=== PATIENT | female | born 1995 | race Caucasian/White ===

== ENCOUNTER 2020-02-04 20:14 | Inpatient (IN) | payer BC ==
[~2020-02-04] VITALS: Ht 167.6 cm; Wt 65.8 kg
[2020-02-04] MEDS ORDERED: Acetaminophen 500mg (ES) tab ORAL ONE (20:45)
--- NOTE | 2020-02-04 20:45 | NUR ---
ED Nurse Note: Recieved pt from home, here with c/o dusuria with left flank pain and now fevers x 2-3 days, pt also with recent travel from [place], pt is awake, alert and oriented x 4, ambulatory, pain at 8/10 with mild nausea, no cp, no sob or labored breathing, pt has hx of kidney infectioon and states this feels the same, also states has hx of IV drug use, pt is calm and cooperative, urine sample collected and sent, will resume care as ordered and closely monitor.
--- NOTE | 2020-02-04 20:57 | Emergency Room Report ---
History of Present Illness General Chief Complaint: Pain Source: Patient Present Illness HPI Patient presents with 2 to 3 days of left-sided flank pain fever and chills. She was recently told that she had kidney stones but also told that she passed them. She has been taking antibiotics mainly penicillin. She finished them several days ago. She is also been taking ibuprofen and says it has not helped. The pain is rated 8/10 at this time left flank. Aching and pressure. The patient does not have periods as she is on control. Patient denies any upper respiratory symptoms. No sore throat, chest pain, palpitations, vomiting, diarrhea, shortness of breath, joint pain, rashes, depression, anxiety, visual changes, dizziness, headache. Allergies: Coded Allergies: No Known Allergies (Unverified , 02/04/20) COVID-19 Screening Contact w/high risk pt: No Recent Travel to affected area: No Experienced COVID-19 symptoms?: Yes COVID-19 symptoms experienced: Fever (T>100.4F or >38C) Patient History Social History: Reports: smoking Social History Narrative server security administrator Reviewed Nursing Documentation: PMH: Agreed; PSxH: Agreed Nursing Documentation-PMH Past Medical History: No Stated History Review of Systems All Other Systems: negative except mentioned in HPI Physical Exam Vital Signs Date Time Temp Pulse Resp B/P (MAP) Pulse Ox O2 Delivery O2 Flow Rate FiO2 02/04/20 20:21 101.8 108 19 118/69 (85) Sp02 EP Interpretation: reviewed, normal General Appearance: well appearing, no apparent distress, GCS 15, non-toxic Head: normocephalic Eyes: bilateral eye normal inspection, bilateral eye PERRL, bilateral eye EOMI ENT: moist mucus membranes Neck: supple Respiratory: lungs clear, normal breath sounds Cardiovascular #1: regular rate, rhythm Cardiovascular #2: 2+ radial (R) Gastrointestinal: no rebound, guarding - Slight guarding, tenderness - Left flank anteriorly Genitourinary: CVA tenderness (L) Musculoskeletal: back normal, normal range of motion, gait/station normal Neurologic: alert, oriented x3, grossly normal Psychiatric: mood/affect normal Skin: no rash, warm/dry Medical Decision Making Diagnostic Impression: Primary Impression: Acute pyelonephritis ER Course Patient presents with fever chills and left-sided flank pain with history renal stones in the past and recent treatment with antibiotics. Differential includes pyelonephritis, retained stone left, urinary tract infection, diverticulitis amongst others. Patient evaluated with labs and renal ultrasound. Patient treated with IV hydration, acetaminophen and also Reglan and Benadryl. Concern about her antibiotic use and recurrent symptoms. Based on presumptive diagnosis of pyelonephritis antibiotics ordered. 2114 Labs with leukocytosis. Ultrasound with mild hydronephrosis on the right but normal on the left. No stones. Urinalysis with pyuria. Due to the fact that the patient had previous antibiotics and that she has white count of 20,000 and significant flank pain the patient is admitted for IV antibiotics and IV hydration and pain control. Analgesia repeated. Patient admitted to medical floor Dr. Potts. Laboratory Tests Test 02/04/20 20:55 02/04/20 21:10 White Blood Count 20.4 K/UL (4.8-10.8) H Red Blood Count 3.85 M/UL (4.20-5.40) L Hemoglobin 11.4 G/DL (12.0-16.0) L Hematocrit 34.1 % (37.0-47.0) L Mean Corpuscular Volume 89 FL (80-99) Mean Corpuscular Hemoglobin 29.5 PG (27.0-31.0) Mean Corpuscular Hemoglobin Concent 33.3 G/DL (32.0-36.0) Red Cell Distribution Width 14.0 % (11.6-14.8) Platelet Count 467 K/UL (150-450) H Mean Platelet Volume 6.0 FL (6.5-10.1) L Neutrophils (%) (Auto) % (45.0-75.0) Lymphocytes (%) (Auto) % (20.0-45.0) Monocytes (%) (Auto) % (1.0-10.0) Eosinophils (%) (Auto) % (0.0-3.0) Basophils (%) (Auto) % (0.0-2.0) Differential Total Cells Counted 100 Neutrophils % (Manual) 76 % (45-75) H Lymphocytes % (Manual) 16 % (20-45) L Monocytes % (Manual) 3 % (1-10) Eosinophils % (Manual) 1 % (0-3) Basophils % (Manual) 2 % (0-2) Band Neutrophils 2 % (0-8) Platelet Estimate Adequate Platelet Morphology Normal Red Blood Cell Morphology Normal Urine Color Yellow Urine Appearance Cloudy Urine pH 8 (4.5-8.0) Urine Specific [place] 1.010 (1.005-1.035) Urine Protein 2+ (NEGATIVE) H Urine Glucose (UA) Negative (NEGATIVE) Urine Ketones Negative (NEGATIVE) Urine Blood 5+ (NEGATIVE) H Urine Nitrite Negative (NEGATIVE) Urine Bilirubin Negative (NEGATIVE) Urine Urobilinogen 4 MG/DL (0.0-1.0) H Urine Leukocyte Esterase 2+ (NEGATIVE) H Urine RBC 10-15 /HPF (0 - 2) H Urine WBC 20-30 /HPF (0 - 2) H Urine Squamous Epithelial Cells Moderate /LPF (NONE/OCC) H Urine Bacteria Moderate /HPF (NONE) H Urine HCG, Qualitative Negative (NEGATIVE) Sodium Level 139 MMOL/L (136-145) Potassium Level 3.6 MMOL/L (3.5-5.1) Chloride Level 102 MMOL/L (98-107) Carbon Dioxide Level 26 MMOL/L (21-32) Anion Gap 11 mmol/L (5-15) Blood Urea Nitrogen 8 mg/dL (7-18) Creatinine 0.7 MG/DL (0.55-1.30) Estimated Glomerular Filtration Rate > 60 mL/min (>60) Glucose Level 110 MG/DL (74-106) H Calcium Level 9.1 MG/DL (8.5-10.1) Total Bilirubin 0.2 MG/DL (0.2-1.0) Aspartate Amino Transferase (AST) 10 U/L (15-37) L Alanine Aminotransferase (ALT) 18 U/L (12-78) Alkaline Phosphatase 51 U/L (46-116) Total Protein 7.4 G/DL (6.4-8.2) Albumin 2.7 G/DL (3.4-5.0) L Globulin 4.7 g/dL Albumin/Globulin Ratio 0.6 (1.0-2.7) L Lipase 88 U/L (73-393) Lactic Acid Level 1.70 mmol/L (0.4-2.0) CT/MRI/US Diagnostic Results CT/MRI/US Diagnostic Results : Imaging Test Ordered: renal US Impression slight hydro R, none L Last Vital Signs Date Time Temp Pulse Resp B/P (MAP) Pulse Ox O2 Delivery O2 Flow Rate FiO2 3/25/20 07:00 98.7 75 16 99/64 (76) 98 02/05/20 00:15 Room Air Status: improved Disposition: ADMITTED INPATIENT Condition: Serious Scripts No Active Prescriptions or Reported Meds Christopher Dela Cruz MD Feb 04, 2020 20:57
[2020-02-04] MEDS ORDERED: DiphenhydrAMINE 50mg/ml Inj IVP ONE (21:00)
[2020-02-04] MEDS ORDERED: Metoclopramide 10mg/2ml Inj IVP ONE (21:00)
[2020-02-04] MEDS ORDERED: cefTRIAXone 1 GM in NS 55 ML IVPB ONE (21:15)
[2020-02-04 21:20] LABS: HEMATOCRIT 34.1 % (37.0-47.0); HEMOGLOBIN 11.4 G/DL (12.0-16.0); MEAN CORPUSCULAR VOLUME 89 FL (80-99); PLATELET COUNT 467 K/UL (150-450); RED BLOOD COUNT 3.85 M/UL (4.20-5.40); WHITE BLOOD COUNT 20.4 K/UL (4.8-10.8)
[2020-02-04 21:28] LABS: APPEARANCE,URINE CLOUDY; BILIRUBIN, URINE NEGATIVE (NEGATIVE); GLUCOSE, URINE (UA) NEGATIVE (NEGATIVE); KETONES,URINE NEGATIVE (NEGATIVE); LEUKOCYTE ESTERASE ,URINE 2+ (NEGATIVE); NITRITE,URINE NEGATIVE (NEGATIVE); PH,URINE 8 (4.5-8.0); PROTEIN,URINE 2+ (NEGATIVE); UROBILINOGEN,URINE 4 MG/DL (0.0-1.0)
[2020-02-04 21:30] LABS: COLOR,URINE YELLOW
[2020-02-04] MEDS ORDERED: Morphine Sulfate 4mg/ml Inj (IV USE ONLY) IVP ONE (21:30)
[2020-02-04 21:34] LABS: ANION GAP 11 mmol/L (5-15); BLOOD UREA NITROGEN 8 mg/dL (7-18); CALCIUM 9.1 MG/DL (8.5-10.1); CARBON DIOXIDE 26 MMOL/L (21-32); CHLORIDE 102 MMOL/L (98-107); CREATININE 0.7 MG/DL (0.55-1.30); POTASSIUM 3.6 MMOL/L (3.5-5.1); SODIUM 139 MMOL/L (136-145)
[2020-02-04 21:39] LABS: ALANINE AMINOTRANSFERASE 18 U/L (12-78); ALBUMIN 2.7 G/DL (3.4-5.0); ALBUMIN/GLOBULIN RATIO 0.6 (1.0-2.7); ALKALINE PHOSPHATASE 51 U/L (46-116); ASPARTATE AMINO TRANSFERASE 10 U/L (15-37); BILIRUBIN,TOTAL 0.2 MG/DL (0.2-1.0)
--- NOTE | 2020-02-04 22:38 | Diagnostic Imaging Report ---
Indication:Elevated Bun and Creatinine. Technique: Grayscale and duplex Doppler imaging of the kidneys performed. Comparison: None Findings: The size, contour, and echogenicity of both kidneys are within normal limits. There is mild right hydronephrosis.. The right kidney measures 10.8 cm. in length. The left kidney measures 12.7 cm. in length. Fatty liver incidentally noted with diffuse increased echogenicity of the visualized part of the liver. The IVC is patent. Urinary bladder is unremarkable. IMPRESSION: Mild right hydronephrosis. Consider further evaluation with CT. Fatty liver
[2020-02-04 23:00] VITALS: BP 108/68
[2020-02-04] MEDS ORDERED: Morphine Sulfate 4mg/ml Inj (IV USE ONLY) IVP PRN ×2 (23:15→23:30)
--- NOTE | 2020-02-04 23:30 | NUR ---
ED Nurse Note: Pt being admitted for pyelonephritis, pt is awake and alert, IV site patent, completed IV antibiotics, tolerated well, no s/s of adverse reaction noted, IV site intact and patent, pt medicated again for pain with morphine, pain at 7/10, belongings list completed and med rec, report called and pt is being taken to unit via wheelchair by bernardo Reyes during pt transport to floor bed.
--- NOTE | 2020-02-04 23:50 | NUR ---
NURSE NOTES: PATIENT WAS SAFELY TRANSFERRED TP UNIT VIA WHEELCHAIR. REPORT RECEIVED FROM HARRY GARNER. BELONGING LIST REVIEWED AND SIGNED. PATIENT IS AWAKE, AAOX4, ON ROOM AIR, NO RESPIRATORY DISTRESS NOTED. ORIENTEED PATIENT TO ROOM. PATIENT C.O PAIN IN LOWER LEFT QUAD. PATIENT JUST RECEIVED PRN MORPHINE IN ER. WILL REASSESS. IV IS INTACT AND PATENT. CONTACTED [facility] FOR ADMISSION ORDERS. BED IS LOCKED AND LOW, BED ALARMS ACTIVE, SIDE RAILS UP X2 AND CALL LIGHT IS WITHIN REACH. WILL CONTINUE TO MONITOR.
[2020-02-05] MEDS: NS w/KCl 20mEq 1000ml 1,000 ML IV SCH ×3 (01:11→18:45)
[2020-02-05 04:00] VITALS: BP_SYST 102; BP_SYST 99; BP_DIAS 55; BP_DIAS 64
[2020-02-05 06:31] LABS: HEMATOCRIT 34.1 % (37.0-47.0); HEMOGLOBIN 11.7 G/DL (12.0-16.0); MEAN CORPUSCULAR VOLUME 87 FL (80-99); PLATELET COUNT 443 K/UL (150-450); RED BLOOD COUNT 3.93 M/UL (4.20-5.40); RED CELL DISTRIBUTION WIDTH 12.2 % (11.6-14.8); WHITE BLOOD COUNT 19.2 K/UL (4.8-10.8)
[2020-02-05 07:00] VITALS: BP 99/64
[2020-02-05] MEDS: Piperacillin/Tazobactam 3.375 GM in NS 110 ML IVPB SCH ×3 (07:01→22:10)
--- NOTE | 2020-02-05 07:29 | NUR ---
HAND-OFF: Report given to Wayne Velasquez RN.
--- NOTE | 2020-02-05 07:30 | NUR ---
NURSE NOTES: Patient lying in bed sleeping. No sign and symptoms of pain or discomfort at this time. IV dressing intact and dry. Bed lowest position. Call light within reach. Will continue to monitor.
[2020-02-05 07:37] LABS: ALANINE AMINOTRANSFERASE 17 U/L (12-78); ALBUMIN 2.2 G/DL (3.4-5.0); ALBUMIN/GLOBULIN RATIO 0.5 (1.0-2.7); ALKALINE PHOSPHATASE 47 U/L (46-116); ANION GAP 11 mmol/L (5-15); ASPARTATE AMINO TRANSFERASE 10 U/L (15-37); BILIRUBIN,TOTAL 0.3 MG/DL (0.2-1.0); BLOOD UREA NITROGEN 6 mg/dL (7-18); CALCIUM 8.7 MG/DL (8.5-10.1); CARBON DIOXIDE 24 MMOL/L (21-32); CHLORIDE 107 MMOL/L (98-107); CREATININE 0.7 MG/DL (0.55-1.30); POTASSIUM 4.4 MMOL/L (3.5-5.1); SODIUM 142 MMOL/L (136-145)
--- NOTE | 2020-02-05 08:00 | NUR ---
NURSE NOTES: Patient awake and alert and oriented,IV fluids infusing as ordered.PATIENT Ate breakfast and resting at this time.call light within reach.
--- NOTE | 2020-02-05 08:27 | NUR ---
HAND-OFF: Report given to Kait MCDONALD. Patient in stable condition.
--- NOTE | 2020-02-05 09:01 | NUR ---
*-* INSURANCE *-* ALL AVAILABLE CLINICALS HAVE BEEN FAXED TO: [facility] [facility] F:[phone] Addendum: 02/05/20 at 1106 by SEFERINO CHAUDHARY CM [employer] [facility] REF# [id number] P: [phone] F: [phone]
[2020-02-05] MEDS: Heparin 5000 units/ml inj SUBQ SCH ×2 (09:20→22:08)
[2020-02-05 12:00] VITALS: BP 92/53
--- NOTE | 2020-02-05 13:07 | NUR ---
CASE MANAGEMENT: INITIAL REVIEW 24YR OLD FEMALE FROM HOME CC: DIFFICULTY URINATION; PAIN HX: history renal stones SI:PYELONEPHRITIS 101.8 108 19 118/69 97% ON RA WBC 20.4 H/H 11.4/34.1 PLT 467 IS:IV ROCEPHIN X1 IV LEVAQUIN X1 IVF NS BOLUS X2 IV MORPHINE SULFATE X2 IV REGLAN X1 IV BENADRYL X1 TYLENOL PO X1 US RENAL- Mild right hydronephrosis \: 4E MED SURG UNIT DCP: HOME WHEN STABLE PLAN: CONT IV ABX IV HYDRATION PAIN CONTROL INTERQUAL MET CASE MANAGEMENT:REVIEW 02/05/20 SI:PYELONEPHRITIS 98.7 75 16 99/64 98% ON RA WBC 19.2 H/H 11.7/34.1 URIC ACID 2.2 IS:IV ZOSYN Q8HR IV KCL Q8HR HEPARIN SQ BID \: 4E MED SURG UNIT DCP: HOME WHEN STABLE PLAN: CONT IV ABX IV HYDRATION CONTROL PAIN REG DIET ORDERED
[2020-02-05] MEDS: traMADol 50mg tab ORAL PRN ×2 (15:53→22:10)
[2020-02-05 16:00] VITALS: BP 110/57
--- NOTE | 2020-02-05 16:08 | Diagnostic Imaging Report ---
Indication: Dyspnea Comparison: None A single view chest radiograph was obtained. Findings: Cardiomediastinal appearance is within normal limits for age. The lungs are clear. Pulmonary vascularity is appropriate. The diaphragmatic contour is smooth and costophrenic angles are sharp. No pleural effusions are identified. The bones are unremarkable. Impression: No acute findings
--- NOTE | 2020-02-05 16:59 | Consultation ---
DATE OF CONSULTATION: 02/05/2020 INFECTIOUS DISEASES CONSULTATION CONSULTING PHYSICIAN: Kenny Colindres M.D. PRIMARY ATTENDING PHYSICIAN: Christopher Potts M.D. REASON FOR CONSULTATION: Pyelonephritis. HISTORY OF PRESENT ILLNESS: The patient is a 24-year-old white female admitted last night complaining of left flank pain, fever, had a temperature of 101.8 in the hospital, chills. The patient states that she was diagnosed with nephrolithiasis one week ago when she was in [place] and she passed the stones. The patient finished the course of antibiotic one week ago. PAST MEDICAL HISTORY: Significant for nicotine dependence and amphetamine abuse. ALLERGIES: No known drug allergies. MEDICATIONS: Getting heparin, Zosyn, Tylenol, tramadol. SOCIAL HISTORY: Single, just moved from [place] to [place] to stay in sober house. Has history of methamphetamine abuse, last use was one week ago. Smoker one pack a day. Has a child in a [facility] that her sister has the custody. REVIEW OF SYSTEMS: Fever, chills, dark urine, left flank pain and tenderness, has some dry coughing. PHYSICAL EXAMINATION: VITAL SIGNS: Temperature 98.1, maximum temperature 101.8, pulse 75, blood pressure 99/64. GENERAL APPEARANCE: No acute distress, well developed. HEAD AND NECK: [place] conjunctiva. HEART: Normal rate. LUNGS: Clear. ABDOMEN: Costovertebral tenderness in the left side. EXTREMITIES: No edema. NEUROLOGIC: Awake, alert, oriented x3. LABORATORY AND DIAGNOSTIC DATA: WBC is 19.2, hemoglobin 11.7, hematocrit 34.1, and platelets is 443. Sodium 142, potassium 4.1, chloride 107, bicarb 24, BUN 6, creatinine 0.7. Lactic acid 1.7. Albumin is low at 2.2. UA showed wbc's 20 to 30, rbc's 10 to 15. Renal ultrasound showed mild right hydronephrosis, fatty liver. IMPRESSION: Sepsis with fever and leukocytosis, seems to have pyelonephritis, has mild hydronephrosis, nicotine dependence, methamphetamine abuse, some dry coughing. RECOMMENDATION: Continue Zosyn. We will follow up the cultures. We will start the patient on nicotine patch. We will order HIV test if it is not done before. We will order a chest x-ray. At the end of my exam, I thank Dr. Potts, for involving me in the care of this patient. Kenny Colindres M.D. DR: Sanford JOB#: [id number] CC: KWESI
--- NOTE | 2020-02-05 18:46 | NUR ---
NURSE NOTES: Tylenol 650mg po given for temperature 101.4 will monitor
--- NOTE | 2020-02-05 19:30 | NUR ---
NURSE NOTES: Decrease in temperature now 99.9,patient resting.
--- NOTE | 2020-02-05 19:40 | NUR ---
HAND-OFF: Report given to Ankush MCDONALD.
[2020-02-05 20:00] VITALS: BP 108/62
--- NOTE | 2020-02-05 20:00 | NUR ---
NURSE NOTES: Pt is in bed, awake,alert and verbal. No acute distress noted. Vitals stable. Pain medication will be given as ordered PRN. Bed locked low, side rails up and call light within reach. Pt instructed to call for assistance if needed. Pt will be monitored.
[2020-02-06] VITALS: BP 100/55
[2020-02-06] MEDS: NS w/KCl 20mEq 1000ml 1,000 ML IV SCH ×4 (01:43→23:30)
[2020-02-06] MEDS ORDERED: Omnipaque-300 100ml vial INJ PRN (03:45)
[2020-02-06 04:00] VITALS: BP 105/57
--- NOTE | 2020-02-06 04:26 | NUR ---
NURSE NOTES: Pt is asleep. No acute distress noted. Dr. Potts ordered CT of the abdomen and Pelvis with contrast. Pt will be kept NPO and consent for the contrast will be obtained.
--- NOTE | 2020-02-06 04:30 | History and Physical Report ---
DATE OF ADMISSION: 02/04/2020 REASON FOR ADMISSION: Pyelonephritis. HISTORY OF PRESENT ILLNESS: This is a 24-year-old white female. She presented to the emergency room this evening with left-sided flank pain and fevers to 101.8 with chills. She has a history of kidney stones noted about a week ago when she was out of state in [place] and knows that she passes stones, although cannot be sure that all of them passed. She took a course of antibiotics, which she completed about a week ago. She feels that she did not completely recover, but got much worse over the past two days. The patient does have a history of methamphetamine use and started detox about a week ago. She moved here to stay at a sober house at that time. The patient denies any prior history of kidney infection that she is aware of. PAST MEDICAL HISTORY: Otherwise unremarkable. SOCIAL HISTORY: Notable for amphetamine abuse and nicotine dependence of a pack per day. No alcohol abuse. ALLERGIES: None. MEDICATIONS: Prior to admission, none. REVIEW OF SYSTEMS: Otherwise unremarkable. PHYSICAL EXAMINATION: VITAL SIGNS: Afebrile, temperature earlier 101.8 in the emergency room, blood pressure 99/64, heart rate 75, and respiratory rate 12. HEENT: Conjunctivae are pink. Oropharynx is clear. NECK: Supple. Jugular venous pressure normal. LUNGS: Clear. CARDIAC: Regular. Normal S1 and S2 with no murmur. ABDOMEN: Soft and nontender. There is left-sided CVA tenderness. EXTREMITIES: No edema. NEUROLOGIC: Nonfocal. SKIN: Without rash. LABORATORY AND DIAGNOSTIC DATA: White count 20.4, hemoglobin 11.4, and platelets 467,000. Chemistry panel notable for BUN 8 and creatinine 0.7. Liver function normal. Albumin 2.7. Lactic acid 1.7. Urinalysis 20 to 30 white cells with moderate bacteria. Abdominal ultrasound is notable for right hydronephrosis. IMPRESSION: 1. Pyelonephritis. 2. Hydronephrosis. 3. Moderate protein-calorie malnutrition. 4. Amphetamine abuse. 5. Sepsis. 6. Leukocytosis. PLAN: 1. IV fluid hydration. 2. Empiric antimicrobials. 3. Await culture results. 4. Followup CT imaging of the genitourinary tract to be considered. Christopher Sly Potts DR: NORBERTO JOB#: [id number] CC:
--- NOTE | 2020-02-06 04:45 | Progress Note ---
DATE: 02/05/2020 INTERNAL MEDICINE PROGRESS NOTE SUBJECTIVE: The patient does not feel much better. Still has weakness and left-sided flank pain. No dysuria. No fevers or chills. She was started on IV antimicrobials late last evening. OBJECTIVE: VITAL SIGNS: Blood pressure 110/57, pulse 84, respirations 20, temperature 100.6. LUNGS: Clear. CARDIAC: Regular. ABDOMEN: Soft. Positive left-sided CVA tenderness. EXTREMITIES: No edema. LABORATORY DATA: White count 19 and hemoglobin 11.7. Potassium 4.4, BUN 16, creatinine 0.7, uric acid 2.2, TSH 1.0, and albumin 2.2. IMPRESSION: 1. Pyelonephritis. 2. Leukocytosis. 3. Sepsis. 4. Severe protein-calorie malnutrition. 5. Methamphetamine abuse. 6. Nicotine dependence. 7. History of nephrolithiasis. PLAN: 1. Hydrate with IV fluids. 2. CT scan of the abdomen and pelvis. 3. Continue intravenous antimicrobials. 4. Nicotine patch. 5. Pain control. 6. DVT prophylaxis. 7. Protein supplement. Christopher Potts M.D. DR: NANCY JOB#: [id number] CC:
[2020-02-06] MEDS: Piperacillin/Tazobactam 3.375 GM in NS 110 ML IVPB SCH ×3 (05:17→21:50)
[2020-02-06 06:21] LABS: BASOPHILS % (AUTO) 0.8 % (0.0-2.0); EOSINOPHILS % (AUTO) 1.5 % (0.0-3.0); HEMATOCRIT 32.3 % (37.0-47.0); LYMPHOCYTES % (AUTO) 18.6 % (20.0-45.0); MEAN CORPUSCULAR VOLUME 86 FL (80-99); MONOCYTES % (AUTO) 6.3 % (1.0-10.0); NEUTROPHILS % (AUTO) 72.8 % (45.0-75.0); PLATELET COUNT 421 K/UL (150-450); RED BLOOD COUNT 3.75 M/UL (4.20-5.40); RED CELL DISTRIBUTION WIDTH 12.5 % (11.6-14.8); WHITE BLOOD COUNT 15.5 K/UL (4.8-10.8)
[2020-02-06 06:40] LABS: ALANINE AMINOTRANSFERASE 14 U/L (12-78); ALBUMIN 2.2 G/DL (3.4-5.0); ALBUMIN/GLOBULIN RATIO 0.5 (1.0-2.7); ALKALINE PHOSPHATASE 47 U/L (46-116); ANION GAP 11 mmol/L (5-15); ASPARTATE AMINO TRANSFERASE 10 U/L (15-37); BILIRUBIN,TOTAL 0.3 MG/DL (0.2-1.0); BLOOD UREA NITROGEN 4 mg/dL (7-18); CALCIUM 9.1 MG/DL (8.5-10.1); CARBON DIOXIDE 26 MMOL/L (21-32); CHLORIDE 105 MMOL/L (98-107); CREATININE 0.7 MG/DL (0.55-1.30); POTASSIUM 4.1 MMOL/L (3.5-5.1); SODIUM 142 MMOL/L (136-145)
--- NOTE | 2020-02-06 07:08 | NUR ---
HAND-OFF: Report given to HARRY Carballo.Informed Kait to check with radiology to find out when the CT scan will be done because pt does not want to stay NPO for long.
[2020-02-06 08:00] VITALS: BP_SYST 102; BP_SYST 98; BP_DIAS 57
--- NOTE | 2020-02-06 08:03 | NUR ---
NURSE NOTES: Patient eyes closed, responds when name called. respirations unlabored.IV fluids infusing as ordered.Patient NPO for CT today,will follow up.Call light within reach.
[2020-02-06] MEDS: Heparin 5000 units/ml inj SUBQ SCH ×2 (09:45→21:00)
--- NOTE | 2020-02-06 10:24 | NUR ---
CASE MANAGEMENT:REVIEW 02/06/20 SI:PYELONEPHRITIS 99.3 80 18 98/57 96% ON RA WBC 15.5 H/H 11.0/32.3 URIC ACID 2.2 IS:IV ZOSYN Q8HR IV KCL Q8HR HEPARIN SQ BID ULTRAM Q6HR/PRN \: 4E MED SURG UNIT DCP: HOME WHEN STABLE PLAN: CONT IV ABX IV HYDRATION CONTROL PAIN WBC TRENDING DOWN CONTROL FEVERS: 02/05/20: TEMP: @ 1600-T 100.6-@1853 T 101.4 MONITOR LOW BP RENAL US RECOMMENDING -CT ABD PEL TODAY
[2020-02-06 12:00] VITALS: BP 113/68
--- NOTE | 2020-02-06 12:40 | Infectious Diseases Prog Note ---
Assessment/Plan Assessment/Plan IMPRESSION: Sepsis with fever and leukocytosis, pyelonephritis, mild hydronephrosis in right side, nicotine dependence, methamphetamine abuse, RECOMMENDATION: Continue Zosyn. We will follow up the cultures. Will CT scan of abdomen & pelvis HIV test : negative Subjective ROS Limited/Unobtainable: Yes Constitutional: Reports: fever, other - last night Respiratory: Reports: no symptoms Cardiovascular: Reports: no symptoms Gastrointestinal/Abdominal: Reports: no symptoms Allergies: Coded Allergies: No Known Allergies (Unverified , 02/04/20) Objective Vital Signs Last 24 Hour Vital Signs Date Time Temp Pulse Resp B/P (MAP) Pulse Ox O2 Delivery O2 Flow Rate FiO2 02/06/20 10:03 Room Air 02/06/20 08:00 99.3 80 18 98/57 (71) 96 02/06/20 04:00 98.2 74 16 105/57 (73) 96 02/06/20 00:00 98.2 73 18 100/55 (70) 98 02/05/20 21:00 Room Air 02/05/20 20:00 99.7 101 18 108/62 (77) 98 02/05/20 19:30 99.9 02/05/20 18:53 101.4 02/05/20 16:00 100.6 84 20 110/57 (74) 96 Height (Feet): 5 Height (Inches): 6.00 Weight (Pounds): 145 General Appearance: no acute distress HEENT: mucous membranes moist Respiratory/Chest: lungs clear Cardiovascular: normal rate Abdomen: soft, non tender Extremities: no edema Neurologic/Psychiatric: alert, oriented x 3, responsive Microbiology Date/Time Source Procedure Growth Status 02/04/20 20:55 Urine,Clean Catch Urine Culture - Preliminary NO GROWTH Resulted Laboratory Tests Test 02/06/20 05:45 White Blood Count 15.5 K/UL (4.8-10.8) H Red Blood Count 3.75 M/UL (4.20-5.40) L Hemoglobin 11.0 G/DL (12.0-16.0) L Hematocrit 32.3 % (37.0-47.0) L Mean Corpuscular Volume 86 FL (80-99) Mean Corpuscular Hemoglobin 29.4 PG (27.0-31.0) Mean Corpuscular Hemoglobin Concent 34.1 G/DL (32.0-36.0) Red Cell Distribution Width 12.5 % (11.6-14.8) Platelet Count 421 K/UL (150-450) Mean Platelet Volume 5.3 FL (6.5-10.1) L Neutrophils (%) (Auto) 72.8 % (45.0-75.0) Lymphocytes (%) (Auto) 18.6 % (20.0-45.0) L Monocytes (%) (Auto) 6.3 % (1.0-10.0) Eosinophils (%) (Auto) 1.5 % (0.0-3.0) Basophils (%) (Auto) 0.8 % (0.0-2.0) Sodium Level 142 MMOL/L (136-145) Potassium Level 4.1 MMOL/L (3.5-5.1) Chloride Level 105 MMOL/L (98-107) Carbon Dioxide Level 26 MMOL/L (21-32) Anion Gap 11 mmol/L (5-15) Blood Urea Nitrogen 4 mg/dL (7-18) L Creatinine 0.7 MG/DL (0.55-1.30) Estimat Glomerular Filtration Rate > 60 mL/min (>60) Glucose Level 89 MG/DL (74-106) Calcium Level 9.1 MG/DL (8.5-10.1) Total Bilirubin 0.3 MG/DL (0.2-1.0) Aspartate Amino Transf (AST/SGOT) 10 U/L (15-37) L Alanine Aminotransferase (ALT/SGPT) 14 U/L (12-78) Alkaline Phosphatase 47 U/L (46-116) Total Protein 6.6 G/DL (6.4-8.2) Albumin 2.2 G/DL (3.4-5.0) L Globulin 4.4 g/dL Albumin/Globulin Ratio 0.5 (1.0-2.7) L HIV (1&2) Antibody Rapid Negative (NEGATIVE) Current Medications Medications (Trade) Dose Ordered Sig/Kiran Route PRN Reason Start Time Stop Time Status Last Admin Dose Admin Acetaminophen (Tylenol) 650 mg Q4H PRN ORAL Mild Pain/Temp > 100.5 02/05/20 00:30 03/06/20 00:29 02/05/20 18:46 Barium Sulfate (Readi-Cat 2) 450 ml NOW PRN ORAL Radiology Procedure 02/06/20 03:45 02/08/20 03:40 02/06/20 09:52 Heparin Sodium (Porcine) (Heparin 5000 units/ml) 5,000 units EVERY 12 HOURS SUBQ 02/05/20 09:00 03/21/20 08:59 02/06/20 09:45 Iohexol (OMNIPAQUE-300 100ml) 100 ml NOW PRN INJ Radiology Procedure 02/06/20 03:45 02/08/20 03:40 Nicotine (Nicoderm) 1 patch Q24H TDERMAL 02/05/20 13:45 05/05/20 13:44 02/05/20 14:31 Piperacillin Sod/ Tazobactam Sod 3.375 gm/Sodium Chloride 110 ml @ 27.5 mls/hr EVERY 8 HOURS IVPB 02/05/20 06:00 02/10/20 05:59 02/06/20 05:17 Potassium Chloride/Sodium Chloride 1,000 ml @ 125 mls/hr Q8H IV 02/05/20 00:30 03/06/20 00:29 02/06/20 09:48 Tramadol HCl (Ultram) 50 mg Q6H PRN ORAL mod -severe pain 02/05/20 00:30 02/12/20 00:29 02/05/20 22:10 Kenny Colindres MD Feb 06, 2020 12:40
--- NOTE | 2020-02-06 12:56 | Diagnostic Imaging Report ---
INDICATION: Abdominal pain TECHNIQUE: Continuous helical transaxial imaging of the abdomen and pelvis was obtained from the lung bases to the pubic symphysis during intravenous contrast administration. Coronal 2-D reformats were also obtained. Study obtained in a Siemens sensation [address] Automatic Exposure Control was utilized. Total Dose length Product (DLP): 236.[address] Dose Index Volume (CTDIvol): 4.5 mGy COMPARISON: None FINDINGS: Lungs: The visualized lung bases are clear. Liver: Unremarkable Gallbladder/biliary system: No gallstones are identified. There is no evidence of intrahepatic or extrahepatic biliary ductal dilatation. Spleen: Unremarkable Pancreas: Unremarkable Kidneys/Bladder: There is mild right hydroureteronephrosis demonstrated. The distal part of the right ureter is not well seen but there is no stone demonstrated within the ureter, other portions of the collecting system or kidneys. Pelvis: The right hydronephrosis may be secondary to extrinsic compression via a cystic-appearing mass demonstrated in the pelvis, midline and just posterior to the uterus the bladder is relatively nondistended. There is minimal pelvocaliectasis in the left kidney.. The cystic mass measures about 10 x 7.5 x 6.7 cm and could be ovarian in nature. A separate right ovary is not definitely identified on this exam. The left ovary is identified and enlarged measuring approximately 6 x 3.8 x 5.6 cm. There are multiple cysts within the left ovary. The uterus is present and there is an intrauterine device present within the uterus. The IUD is low in position and is partially in the endocervical canal.. Adrenal glands: Unremarkable Aorta/IVC: Unremarkable Bowel: Some fecal retention noted within the colon. The appendix is normal. There is no evidence of small bowel obstruction. Peritoneum: There is no free fluid. Bones: Unremarkable IMPRESSION: 10 x 7.5 x 6.7 cm complex cystic mass within the pelvis probably ovarian in nature. The mass is seen just posterior to the uterus. Recommend evaluation with endovaginal ultrasound. Mild right hydroureteronephrosis most likely on the basis of the pelvic mass. Enlarged left ovary with multiple cysts. Low-lying intrauterine device partially within the endocervical canal. The CT scanner at [facility] is accredited by the [employer] and the scans are performed using dose optimization techniques as appropriate to a performed exam including Automatic Exposure control.
--- NOTE | 2020-02-06 13:52 | NUR ---
*-* INSURANCE *-* ALL AVAILABLE CLINICALS HAVE BEEN FAXED TO: [facility] REF# [id number] P: [phone] F: [phone]
--- NOTE | 2020-02-06 15:21 | NUR ---
CHARGE NURSE NOTE: was informed about result of CT of abdomen and Pelvis (10x7.5x6.7cm complex cystic mass pos. ovarian nature). He will see patient later. No new orders given.
[2020-02-06 16:00] VITALS: BP 105/54
--- NOTE | 2020-02-06 17:53 | NUR ---
NURSE NOTES: Patient state she is feeling warm ,also having some discomfort in her lower left side.Oral temerature now 102.6,will give tylenol as ordered.patient also state she had also went to the dentist,on the same day as she was admitted into the hospital and she was given a prescription for antibiotic but was unable to fill prescription.Will update Doctor.Patient state she is not having any mouth pain.
--- NOTE | 2020-02-06 18:11 | NUR ---
NURSE NOTES: DR Potts here to see patient and given up date regarding patient concern on Dental issue.Aware that patient spiked temperature,aware tylenol was given.
--- NOTE | 2020-02-06 19:20 | NUR ---
HAND-OFF: Report given to SUDHA MCDONALD.
[2020-02-06 20:00] VITALS: BP 102/57
--- NOTE | 2020-02-06 20:03 | NUR ---
NURSE NOTES: Receive pt on the bed in a stable condition awake,alert and verbal. no complain of pain and vitals are stable. Bed is the lower position and call light is within reach. ulterasound was taken and Doctor told her the result . patient updated on the care plan.
[2020-02-06] MEDS: traMADol 50mg tab ORAL PRN (21:48)
--- NOTE | 2020-02-06 22:00 | Progress Note ---
DATE: 02/06/2020 INTERNAL MEDICINE PROGRESS NOTE SUBJECTIVE: The patient has episodic fever less frequent and pain is reduced, but recurs with fevers. She is on empiric IV antimicrobials. She had a CAT scan today that revealed hydronephrosis on the right with a cystic appearing mass over the pelvis measuring 10 x 7 x 6.7 and possibly ovarian. No stones were noted. PHYSICAL EXAMINATION: BACK: Mild CVA tenderness. LUNGS: Clear. CARDIAC: Regular. Normal S1, S2. EXTREMITIES: No edema. LABORATORY DATA: White count 15.5, hemoglobin 11. Chemistry panel within normal limits. IMPRESSION: 1. Pyelonephritis. 2. Right cystic mass suggestive of ovarian origin. 3. Severe protein-calorie malnutrition. 4. Sepsis, clinically improving. 5. Leukocytosis, decreasing. PLAN: 1. Continue IV fluids. 2. Continue antimicrobials. 3. Cultures are negative to date, but the patient may have been partially treated. 4. Endovaginal ultrasound and Gynecology consultation has been requested. Christopher Potts M.D. : RAMON JOB#: [id number] CC:
[2020-02-07] VITALS: BP 107/59
--- NOTE | 2020-02-07 01:00 | NUR ---
pt is asleep no complain of pain , no fever , and no sob. All meds are given on time and tolerated well. All needs are met. bed is locked and lower position. call light within reach. we will keep monitoring.
[2020-02-07 04:00] VITALS: BP 103/62
[2020-02-07] MEDS: Piperacillin/Tazobactam 3.375 GM in NS 110 ML IVPB SCH ×3 (06:09→21:49)
--- NOTE | 2020-02-07 07:30 | NUR ---
HAND-OFF: Report given to HARRY Du.
--- NOTE | 2020-02-07 07:35 | NUR ---
NURSE NOTES: Received report from HARRY Lechuga. Patient A&Ox4. On room air, no signs of distress or labored breathing. IV intact, patent, and infusing IV fluids. Bed in lowest position with call light in reach. Will continue with plan of care.
[2020-02-07 08:00] VITALS: BP 106/61
[2020-02-07] MEDS: Heparin 5000 units/ml inj SUBQ SCH ×2 (08:31→21:00)
[2020-02-07] MEDS: NS w/KCl 20mEq 1000ml 1,000 ML IV SCH (08:31)
--- NOTE | 2020-02-07 11:21 | NUR ---
CASE MANAGEMENT:REVIEW 02/07/20 SI:PYELONEPHRITIS 97.9 80 18 106/61 96% ON RA IS:IV ZOSYN Q8HR IV KCL Q8HR HEPARIN SQ BID ULTRAM Q6HR/PRN \: 4E MED SURG UNIT DCP: HOME WHEN STABLE PLAN: CONT IV ABX IV HYDRATION CONTROL PAIN WBC TRENDING DOWN CONTROL FEVERS: 02/06/20: TEMP: @ 1926-T 101.[address] ABD/PEL- 10 x 7.5 x 6.7 cm complex cystic mass Mild right hydroureteronephrosis Enlarged left ovary with multiple cysts. Endovaginal ultrasound TODAY Gynecology consultation
--- NOTE | 2020-02-07 11:27 | Diagnostic Imaging Report ---
Indication: Pelvic pain. Mass noted in the pelvis on CT. Negative test documented in the SY. Technique: Transabdominal and endovaginal pelvic ultrasound was performed. Findings: Partially imaged portions of the bladder are grossly unremarkable allowing for degree of underdistention. Uterus is unremarkable in appearance. Endometrium is normal in thickness measuring 3-4 mm. IUD noted within the uterus. In the right adnexal region there is a 9.1 cm predominantly anechoic structure most likely representing a large ovarian cyst. Right ovary is displaced somewhat posteriorly to the uterus. The smaller cyst is also noted in the right ovary measuring 1.1 cm diameter. Color and Doppler flow is documented in the adjacent right ovarian tissue. Small cysts are noted within the left ovary, one measuring approximately 1.8 cm and another measuring approximately 1.5 cm. Color and Doppler flow in the left ovary is documented. No free pelvic fluid is demonstrated. IMPRESSION: * Large cyst in the right ovary measuring 9.1 cm with apparent displacement of the right ovary posterior to the uterus. Given size, gynecologic consultation/evaluation is recommended. If there is pelvic pain the possibility of intermittent torsion related to this large lesion cannot be excluded. Color and Doppler flow demonstrated in the right ovary at this time. * Small cysts noted in the left ovary. Color and Doppler flow demonstrated in the left ovary. * IUD in the uterus. * No free pelvic fluid demonstrated.
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
[2020-02-07 12:00] VITALS: BP 96/61
--- NOTE | 2020-02-07 12:13 | Infectious Diseases Prog Note ---
Assessment/Plan Assessment/Plan IMPRESSION: Sepsis with fever and leukocytosis, Ovarian cyst pyelonephritis, mild hydronephrosis in right side, nicotine dependence, methamphetamine abuse, RECOMMENDATION: Continue Zosyn. We will follow up the cultures. Plan per [facility] specialist HIV test : negative Subjective ROS Limited/Unobtainable: Yes Constitutional: Reports: fever, other - last night Allergies: Coded Allergies: No Known Allergies (Unverified , 02/04/20) Objective Vital Signs Last 24 Hour Vital Signs Date Time Temp Pulse Resp B/P (MAP) Pulse Ox O2 Delivery O2 Flow Rate FiO2 02/07/20 08:00 97.9 80 18 106/61 (76) 96 02/07/20 04:00 98.1 74 18 103/62 (76) 97 02/07/20 00:00 98.9 67 18 107/59 (75) 98 02/06/20 21:00 Room Air 02/06/20 20:00 99.8 91 18 102/57 (72) 97 02/06/20 19:26 101.7 02/06/20 16:00 99.8 94 17 105/54 (71) 97 Height (Feet): 5 Height (Inches): 6.00 Weight (Pounds): 145 General Appearance: no acute distress HEENT: mucous membranes moist Respiratory/Chest: lungs clear Cardiovascular: normal rate Abdomen: soft, non tender Extremities: no edema Skin: no rash Neurologic/Psychiatric: other - sleeping Microbiology Date/Time Source Procedure Growth Status 02/04/20 20:55 Urine,Clean Catch Urine Culture - Final Staphylococcus Sp Coag Neg Mixed Gram Positive Organism Complete Current Medications Medications (Trade) Dose Ordered Sig/Kiran Route PRN Reason Start Time Stop Time Status Last Admin Dose Admin Acetaminophen (Tylenol) 650 mg Q4H PRN ORAL Mild Pain/Temp > 100.5 02/05/20 00:30 03/06/20 00:29 02/06/20 18:11 Barium Sulfate (Readi-Cat 2) 450 ml NOW PRN ORAL Radiology Procedure 02/06/20 03:45 02/08/20 03:40 02/06/20 09:52 Heparin Sodium (Porcine) (Heparin 5000 units/ml) 5,000 units EVERY 12 HOURS SUBQ 02/05/20 09:00 03/21/20 08:59 02/07/20 08:31 Iohexol (OMNIPAQUE-300 100ml) 100 ml NOW PRN INJ Radiology Procedure 02/06/20 03:45 02/08/20 03:40 Nicotine (Nicoderm) 1 patch Q24H TDERMAL 02/05/20 13:45 05/05/20 13:44 02/06/20 14:20 Piperacillin Sod/ Tazobactam Sod 3.375 gm/Sodium Chloride 110 ml @ 27.5 mls/hr EVERY 8 HOURS IVPB 02/05/20 06:00 02/10/20 05:59 02/07/20 06:09 Potassium Chloride/Sodium Chloride 1,000 ml @ 125 mls/hr Q8H IV 02/05/20 00:30 03/06/20 00:29 02/07/20 08:31 Tramadol HCl (Ultram) 50 mg Q6H PRN ORAL mod -severe pain 02/05/20 00:30 02/12/20 00:29 02/06/20 21:48 Kenny Colindres MD Feb 07, 2020 12:13
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
[2020-02-07 16:00] VITALS: BP 107/70
[2020-02-07 18:27] LABS: BASOPHILS % (AUTO) 1.3 % (0.0-2.0); EOSINOPHILS % (AUTO) 1.7 % (0.0-3.0); HEMATOCRIT 36.6 % (37.0-47.0); HEMOGLOBIN 11.6 G/DL (12.0-16.0); LYMPHOCYTES % (AUTO) 19.4 % (20.0-45.0); MEAN CORPUSCULAR VOLUME 89 FL (80-99); MONOCYTES % (AUTO) 4.9 % (1.0-10.0); NEUTROPHILS % (AUTO) 72.8 % (45.0-75.0); PLATELET COUNT 479 K/UL (150-450); RED BLOOD COUNT 4.13 M/UL (4.20-5.40); RED CELL DISTRIBUTION WIDTH 13.9 % (11.6-14.8); WHITE BLOOD COUNT 13.1 K/UL (4.8-10.8)
--- NOTE | 2020-02-07 18:30 | NUR ---
NURSE NOTES: Faxed request for CT of abdomen from [facility] in [facility] per request of Dr. Adrian.
--- NOTE | 2020-02-07 19:22 | NUR ---
HAND-OFF: Report given to HARRY Montalvo.
--- NOTE | 2020-02-07 19:30 | NUR ---
NURSE NOTES: Patient received in bed, aaox4, no complaints of pain or discomfort at this time. IV is intact and patent. Call light in reach, instructed to call for assistance. Will continue plan of care.
[2020-02-07 20:00] VITALS: BP 116/67
[2020-02-08] VITALS: BP 113/62
--- NOTE | 2020-02-08 02:30 | Progress Note ---
DATE: 02/07/2020 INTERNAL MEDICINE PROGRESS NOTE SUBJECTIVE: Pain has improved. Fevers have subsided. Gynecology and Surgical input was appreciated. Transvaginal ultrasound was reviewed. A 9.1 cm ovarian cyst noted. PHYSICAL EXAMINATION: LUNGS: Bilateral breath sounds. CARDIAC: Regular rhythm and rate. Normal S1 and S2. ABDOMEN: Soft. Minimal tenderness in the lower quadrant. EXTREMITIES: No edema. LABORATORY DATA: White count down to 13 and hemoglobin 11.6. IMPRESSION: 1. Pyelonephritis. 2. Sepsis. 3. Ovarian cyst with mild hydronephrosis, overall improved. PLAN: 1. Continue IV antimicrobials. 2. Pain control as needed. 3. Antipyretics as needed. 4. Outpatient followup for gynecologic biopsy versus oophorectomy to follow and prior imaging studies are being requested as well. 5. Discharge plan in one to two days on oral antimicrobials. Christopher Potts M.D. DR: NORBERTO JOB#: [id number] CC:
[2020-02-08 04:00] VITALS: BP 105/67
[2020-02-08] MEDS: Piperacillin/Tazobactam 3.375 GM in NS 110 ML IVPB SCH (05:07)
--- NOTE | 2020-02-08 07:27 | NUR ---
HAND-OFF: Report given to Keely MCDONALD. Endorsed discharge order of patient today.
--- NOTE | 2020-02-08 07:28 | NUR ---
NURSE NOTES: Received patient in bed, awake, alert and oriented x4. Denies any pain or discomfort. Patient is for discharge. She will look for someone to give her ride,if not she will let RN know. Call light and personnel items within reach. Will continue plan of care.
[2020-02-08 07:38] LABS: BASOPHILS % (AUTO) 1.1 % (0.0-2.0); EOSINOPHILS % (AUTO) 2.3 % (0.0-3.0); HEMATOCRIT 36.7 % (37.0-47.0); HEMOGLOBIN 12.4 G/DL (12.0-16.0); LYMPHOCYTES % (AUTO) 20.8 % (20.0-45.0); MEAN CORPUSCULAR VOLUME 85 FL (80-99); MONOCYTES % (AUTO) 7.1 % (1.0-10.0); NEUTROPHILS % (AUTO) 68.7 % (45.0-75.0); PLATELET COUNT 460 K/UL (150-450); RED BLOOD COUNT 4.29 M/UL (4.20-5.40); RED CELL DISTRIBUTION WIDTH 12.3 % (11.6-14.8); WHITE BLOOD COUNT 13.7 K/UL (4.8-10.8)
[2020-02-08 07:41] LABS: ALANINE AMINOTRANSFERASE 12 U/L (12-78); ALBUMIN 2.7 G/DL (3.4-5.0); ALBUMIN/GLOBULIN RATIO 0.5 (1.0-2.7); ALKALINE PHOSPHATASE 47 U/L (46-116); ANION GAP 10 mmol/L (5-15); ASPARTATE AMINO TRANSFERASE 17 U/L (15-37); BILIRUBIN,TOTAL 0.2 MG/DL (0.2-1.0); BLOOD UREA NITROGEN 9 mg/dL (7-18); CALCIUM 9.4 MG/DL (8.5-10.1); CARBON DIOXIDE 27 MMOL/L (21-32); CHLORIDE 102 MMOL/L (98-107); CREATININE 0.7 MG/DL (0.55-1.30); POTASSIUM 3.9 MMOL/L (3.5-5.1); SODIUM 139 MMOL/L (136-145)
[2020-02-08 08:00] VITALS: BP 111/74
[2020-02-08] MEDS: Heparin 5000 units/ml inj SUBQ SCH (08:27)
--- NOTE | 2020-02-08 08:55 | NUR ---
NURSE NOTES: Patient discharged to [facility] alcohol/drug rehab via private car. Patient's facility worker sent a ride for her. Staff took her down to the lobby. Prior to discharge,patient's condition was stable with stable V/S, afebrile, denied pain or discomfort. No skin issue, ID and IV were removed, no s/s of infection on IV removal site. All belongings were accounted for, no missing items. RN and patient checked all belongings. discharge instruction given to the patient about new antibiotic and to set up appointment with Dr. Rey. Dr. Rey's phone number was given. Written prescription given to the patient,[facility] will fill the medication. Patient will call Dr. Rey on Monday and fill the med.
--- NOTE | 2020-02-08 12:44 | Surgery Progress Note ---
Surgery Progress Note Subjective Symptoms: improved, pain absent, tolerating diet, voiding well, passing flatus , BM Objective Last 24 Hour Vital Signs Date Time Temp Pulse Resp B/P (MAP) Pulse Ox O2 Delivery O2 Flow Rate FiO2 02/08/20 08:00 99.1 95 20 111/74 (86) 99 02/08/20 04:00 97.9 77 18 105/67 (80) 99 02/08/20 00:00 98.4 82 18 113/62 (79) 97 02/07/20 21:00 Room Air 02/07/20 20:00 98.1 93 18 116/67 (83) 95 02/07/20 16:00 98.5 86 18 107/70 (82) 99 I&O Intake and Output 02/07/20 02/08/20 19:00 07:00 Intake Total 507.5 ml 937.5 ml Output Total 3 ml Balance 507.5 ml 934.5 ml Intake Oral 480 ml 800 ml IV Total 27.5 ml 137.5 ml Output Urine Total 3 ml # Voids 3 # Bowel Movements 1 Cardiovascular: RSR Respiratory: clear Abdomen: soft, non-tender, present bowel sounds, non-distended Extremities: no edema, no tenderness, no cyanosis Laboratory Tests Test 02/07/20 17:50 02/08/20 06:00 White Blood Count 13.1 K/UL (4.8-10.8) H 13.7 K/UL (4.8-10.8) H Red Blood Count 4.13 M/UL (4.20-5.40) L 4.29 M/UL (4.20-5.40) Hemoglobin 11.6 G/DL (12.0-16.0) L 12.4 G/DL (12.0-16.0) Hematocrit 36.6 % (37.0-47.0) L 36.7 % (37.0-47.0) L Mean Corpuscular Volume 89 FL (80-99) 85 FL (80-99) Mean Corpuscular Hemoglobin 28.2 PG (27.0-31.0) 28.8 PG (27.0-31.0) Mean Corpuscular Hemoglobin Concent 31.8 G/DL (32.0-36.0) L 33.7 G/DL (32.0-36.0) Red Cell Distribution Width 13.9 % (11.6-14.8) 12.3 % (11.6-14.8) Platelet Count 479 K/UL (150-450) H 460 K/UL (150-450) H Mean Platelet Volume 6.0 FL (6.5-10.1) L 5.2 FL (6.5-10.1) L Neutrophils (%) (Auto) 72.8 % (45.0-75.0) 68.7 % (45.0-75.0) Lymphocytes (%) (Auto) 19.4 % (20.0-45.0) L 20.8 % (20.0-45.0) Monocytes (%) (Auto) 4.9 % (1.0-10.0) 7.1 % (1.0-10.0) Eosinophils (%) (Auto) 1.7 % (0.0-3.0) 2.3 % (0.0-3.0) Basophils (%) (Auto) 1.3 % (0.0-2.0) 1.1 % (0.0-2.0) Erythrocyte Sedimentation Rate 84 MM/HR (0-20) H Sodium Level 139 MMOL/L (136-145) Potassium Level 3.9 MMOL/L (3.5-5.1) Chloride Level 102 MMOL/L (98-107) Carbon Dioxide Level 27 MMOL/L (21-32) Anion Gap 10 mmol/L (5-15) Blood Urea Nitrogen 9 mg/dL (7-18) Creatinine 0.7 MG/DL (0.55-1.30) Estimat Glomerular Filtration Rate > 60 mL/min (>60) Glucose Level 94 MG/DL (74-106) Calcium Level 9.4 MG/DL (8.5-10.1) Total Bilirubin 0.2 MG/DL (0.2-1.0) Aspartate Amino Transf (AST/SGOT) 17 U/L (15-37) Alanine Aminotransferase (ALT/SGPT) 12 U/L (12-78) Alkaline Phosphatase 47 U/L (46-116) C-Reactive Protein, Quantitative 12.1 mg/dL (0.00-0.90) H Total Protein 7.7 G/DL (6.4-8.2) Albumin 2.7 G/DL (3.4-5.0) L Globulin 5.0 g/dL Albumin/Globulin Ratio 0.5 (1.0-2.7) L Plan Problems: (1) Acute pyelonephritis (2) Abdominal mass Assessment & Plan: Cystic ovarian mass likely unlikely other type of abdominal mass. Ultrasound and CT reviewed. Discussed with CARD TENDER and primary care team. No acute emergency surgical intervention or CARD TENDER intervention indicated recommended. Pain control. Antibiotics for Vadim. Once improved discharge planning with outpatient follow-up with C[facility] T[facility]ER oncology at [facility] Dr. Rey. #2 scheduling department was given to patient via CARD TENDER. For diet. Activity as tolerated. Will monitor abdominal exam. Thank you for let me participate in patient's care late entry d/c plan for today outpatient follow up info given to patient office information given to patient if needed thank you Lungs: The visualized lung bases are clear. Liver: Unremarkable Gallbladder/biliary system: No gallstones are identified. There is no evidence of intrahepatic or extrahepatic biliary ductal dilatation. Spleen: Unremarkable Pancreas: Unremarkable Kidneys/Bladder: There is mild right hydroureteronephrosis demonstrated. The distal part of the right ureter is not well seen but there is no stone demonstrated within the ureter, other portions of the collecting system or kidneys. Pelvis: The right hydronephrosis may be secondary to extrinsic compression via a cystic-appearing mass demonstrated in the pelvis, midline and just posterior to the uterus the bladder is relatively nondistended. There is minimal pelvocaliectasis in the left kidney.. The cystic mass measures about 10 x 7.5 x 6.7 cm and could be ovarian in nature. A separate right ovary is not definitely identified on this exam. The left ovary is identified and enlarged measuring approximately 6 x 3.8 x 5.6 cm. There are multiple cysts within the left ovary. The uterus is present and there is an intrauterine device present within the uterus. The IUD is low in position and is partially in the endocervical canal.. Adrenal glands: Unremarkable Aorta/IVC: Unremarkable Bowel: Some fecal retention noted within the colon. The appendix is normal. There is no evidence of small bowel obstruction. Peritoneum: There is no free fluid. Bones: Unremarkable IMPRESSION: 10 x 7.5 x 6.7 cm complex cystic mass within the pelvis probably ovarian in nature. The mass is seen just posterior to the uterus. Recommend evaluation with endovaginal ultrasound. Mild right hydroureteronephrosis most likely on the basis of the pelvic mass. Enlarged left ovary with multiple cysts. Low-lying intrauterine device partially within the endocervical canal. Glenroy Adrian Feb 08, 2020 12:44
--- NOTE | 2020-02-10 10:45 | Discharge Summary ---
Discharge Summary Discharge Summary _ DATE OF ADMISSION: 02/04/2020 DATE OF DISCHARGE: 02/08/2020 DISCHARGED BY: Dr. Potts REASON FOR ADMISSION: 24 years old female with history of kidney stones, presented to emergency department with right-sided flank pain and fever with chills. About a week ago , she was out of state in [place] and reported that she passed stones, although she could not be sure if all of them were passed. Patient was on the antibiotic , which she completed a week ago. Patient reported that she did not feel that she completely recovered, and her symptoms got much worse over the last few days. Upon evaluation patient was febrile , with significant leukocytosis WBC 20.4, hemoglobin 11.4 , hematocrit 34.1. Stable renal parameters and electrolytes. Lactic acid 1.7. Urinalysis revealed evidence of urinary tract infection and +2 protein. Urine test was negative. Renal ultrasound demonstrated mild right hydronephrosis. Fatty liver. In emergency department patient started on empiric antibiotics and admitted for further management. CONSULTANTS: ID specialist Dr. Colindres surgery Dr. Adrian MANAGER OCCUPATIONAL Dr. Webb HOSPITAL COURSE: Patient admitted to medical surgical floor. Patient started on the IV fluids and empiric antibiotics. Urine culture revealed Staph coagulase negative with colony count 50-60 K and mixed gram-positive organisms with colony count less than 10K. Antibiotic provided as per ID specialist recommendation. Pain management was addressed as needed. Diet was advanced as tolerated. Patient was able to tolerate diet. CT scan of the abdomen and pelvis demonstrated 10 x 7.5 x 6.7 cm complex cystic mass within pelvis, probably ovarian in nature. The mass was seen just posterior to the uterus. Mild right hydronephrosis, most likely on the basis of the pelvic mass. General surgeon and MANAGER OCCUPATIONAL specialist both seen and evaluated patient. Transvaginal ultrasound revealed a large cyst in the right ovary, measuring 9.1 cm with apparent displacement of the right ovary posterior to the uterus. IUD in the uterus. No free pelvic fluid. MANAGER OCCUPATIONAL specialist closely reviewed images and concluded that there was no signs or symptoms of ovarian torsion. Pain management was addressed. Antibiotic continued. Patient's case was discussed with the ARMATURE VARNISHER oncologist Dr. Rey at [facility] for patient to have evaluation and determine timing and need for surgical intervention. Patient was provided with the phone number of oncologist at [facility] and encouraged to make an appointment as soon as possible after discharge. No acute surgical intervention or MANAGER OCCUPATIONAL intervention was indicated at this time. Patient to follow-up with the MANAGER OCCUPATIONAL oncologist Dr. Rey at [facility]. HIV test was negative. Fevers resolved. Leukocytosis trending down. Patient was counseled on abstinence from illicit street drugs and smoking cessation. Patient was stable for discharge home with outpatient follow-up with the ARMATURE VARNISHER - oncologist. FINAL DIAGNOSES: Sepsis Acute pyelonephritis Right-sided ovarian mass/ 9.1 cm max in dimension Mild right hydronephrosis Nicotine dependency Methamphetamine abuse Severe protein calorie malnutrition DISCHARGE MEDICATIONS: See Medication Reconciliation list. DISCHARGE INSTRUCTIONS: Patient was discharged home. Patient to follow-up with outpatient ARMATURE VARNISHER oncologist Dr. Rey at [facility]. I have been assigned to dictate discharge summary for this account. I was not involved in the patient's management. Jacquie Ford NP Feb 10, 2020 10:45
--- NOTE | 2020-02-10 12:26 | NUR ---
*-* INSURANCE *-* ALL AVAILABLE CLINICALS HAVE BEEN FAXED TO: [facility] REF# [id number] P: [phone] F: [phone]
--- NOTE | 2020-02-11 14:29 | NUR ---
*-* INSURANCE *-* DISCHARGE SUMMARY HAS BEEN FAXED TO: [facility] REF# [id number] P: [phone] F: [phone]
== END 2020-02-08 08:55 | disposition home or self-care (01) | DRG 871 ==
LOC: EMR 20:45 → 4E 21:31 → EDBEDREQ 22:31
DX: A41.9 Sepsis, unspecified organism (principal); E43 Unspecified severe protein-calorie malnutrition; N10 Acute pyelonephritis; N13.6 Pyonephrosis; F15.10 Other stimulant abuse, uncomplicated; Z68.23 Body mass index [BMI] 23.0-23.9, adult; N83.201 Unspecified ovarian cyst, right side; K76.0 Fatty (change of) liver, not elsewhere classified; F17.210 Nicotine dependence, cigarettes, uncomplicated; D72.829 Elevated white blood cell count, unspecified; Z87.442 Personal history of urinary calculi; Z97.5 Presence of (intrauterine) contraceptive device
CPT/HCPCS: 36415; 71045; 74177; 76770; 76830; 76856; 80053; 81003; 81025; 83605; 83690; 84443; 84550; 85007; 85025; 85651; 86140; 86703; 87086; 96361; 96365; 96368; 96375; 96376; 99285; J2765; J7030